=== PATIENT | male | born 1965 | race Caucasian/White ===

== ENCOUNTER → 2016-08-16 | Outpatient (CLI) | payer OTHER | LOC: M LAB 07:29 | PROVIDERS: ATTEND Neurological Surgery | DX: E66.9 Obesity, unspecified (principal) ==

== ENCOUNTER 2018-01-28 16:49 | Emergency (ER) | payer OTHER ==
[2018-01-28 18:06] LABS: BASO # 0.1 10^3/uL (0.0-0.2); BASO % 1.1 % (0.0-1.0); EOS # 0.2 10^3/uL (0.0-0.50); EOS % 2.4 % (0.0-3.0); HEMOGLOBIN 14.8 g/dl (13.5-17.5); IMMATURE GRANULOCYTE % 0.2 % (0-3.0); LYMPH # 2.4 10^3/uL (1.5-4.5); MEAN CORPUSCULAR HEMOGLOBIN 29.2 pg (27.0-33.0); MEAN CORPUSCULAR HGB CONC 34.4 g/dl (32.0-36.5); MONO # 0.6 10^3/uL (0.0-0.8); MONO % 7.2 % (0.0-5.0); NEUTROPHILS # 5.1 10^3/uL (1.8-7.7); NEUTROPHILS % 60.1 % (36.0-66.0); PLATELET COUNT, AUTOMATED 259 10^3/uL (150-450); RED BLOOD COUNT 5.06 10^6/uL (4.30-6.10); RED CELL DISTRIBUTION WIDTH 14.2 % (11.5-14.5); WHITE BLOOD COUNT 8.4 10^3/uL (4.0-10.0)
[2018-01-28 18:11] LABS: ALBUMIN 3.7 GM/DL (3.2-5.2); ALBUMIN/GLOBULIN RATIO 1.28 (1.00-1.93); ALKALINE PHOSPHATASE 67 U/L (45-117); ALT/SGPT 77 U/L (12-78); ANION GAP 7 MEQ/L (8-16); AST/SGOT 35 U/L (7-37); BILIRUBIN,DIRECT < 0.1 MG/DL (0.0-0.2); BILIRUBIN,TOTAL 0.3 MG/DL (0.2-1.0); BLOOD UREA NITROGEN 12 MG/DL (7-18); CALCIUM LEVEL 8.9 MG/DL (8.5-10.1); CARBON DIOXIDE LEVEL 26 MEQ/L (21-32); CHLORIDE LEVEL 105 MEQ/L (98-107); CPK CREATINE PHOSPHOKINASE 197 U/L (39-308); CREATININE FOR GFR 0.82 MG/DL (0.70-1.30); FREE T4 0.98 NG/DL (0.76-1.46); GLOMERULAR FILTRATION RATE > 60.0 (>56); GLUCOSE, FASTING 140 MG/DL (70-100); LIPASE 169 U/L (73-393); MB/CK RELATIVE INDEX 1.17 (< OR =4); POTASSIUM SERUM 3.9 MEQ/L (3.5-5.1); SODIUM LEVEL 138 MEQ/L (136-145); TOTAL PROTEIN 6.6 GM/DL (6.4-8.2); TROPONIN I < 0.02 NG/ML (< 0.10)
[2018-01-28 18:20] LABS: INR 0.95; PROTHROMBIN TIME 12.8 SECONDS (12.1-14.4)
[2018-01-28 18:21] LABS: PARTIAL THROMBOPLASTIN TIME 29.4 SECONDS (25.4-37.6)
[2018-01-28] MEDS: GI COCKTAIL 50ML BTL(HYOSCYAMINE/MAALOX/LIDOCAINE VISCOUS)(1:3:1) PO (18:26)
[2018-01-28] MEDS: KETOROLAC 30 MG/ML VIAL (J1885) IV (18:27)
[2018-01-28 21:28] LABS: CPK CREATINE PHOSPHOKINASE 179 U/L (39-308); MB/CK RELATIVE INDEX 1.17 (< OR =4); TROPONIN I < 0.02 NG/ML (< 0.10)
== END 2018-01-28 22:24 | disposition home or self-care (01) ==
LOC: M ED 16:49
DX: R07.89 Other chest pain (principal); R06.02 Shortness of breath; R20.2 Paresthesia of skin; Z87.828 Personal history of other (healed) physical injury and trauma; F17.200 Nicotine dependence, unspecified, uncomplicated
CPT/HCPCS: J1885

== ENCOUNTER → 2018-08-12 | Outpatient (CLI) | payer OTHER ==
--- NOTE | 2018-08-15 11:13 | SLEEPCENT ---
DATE OF STUDY: 08/12/2018 ORDERED BY: Stephanie Barth Nocturnal polysomnography was performed for evaluation of sleep physiology in this patient with a history of excessive somnolence and snoring who has nonrestorative sleep and comorbidities of hypertension and diabetes. 8 hours and 54 minutes of data were reviewed. There were 448 minutes of sleep identified. Sleep latency was mildly prolonged at 29 minutes. Rapid eye movement (REM) latency was normal at 86 minutes. Sleep architecture was fairly good. There was some fragmentation early in the study. There were 4 REM periods noted. Overall sleep efficiency was 86.8%. The electrocardiogram showed a sinus rhythm with an average heart rate of 80 beats per minute. Electroencephalogram (EEG) showed some artifactual changes. No focal events were seen and there were normal waveforms for awake and sleep. There were 51 respiratory events identified of 10 seconds in duration or greater for an apnea-hypopnea index of 8.1. The events were primarily obstructive, not exclusive to sleep stage nor body posture. Arousals from respiratory events occurred 5.1 times per hour and there were oxygen desaturations into the 80s. There was limited limb activity noted in the EMG and remaining measures of sleep physiology were normal. IMPRESSION: Obstructive sleep apnea syndrome (G47.33). Apnea-hypopnea index 8.1. RECOMMENDATION: The patient should be encouraged to undergo formal sleep evaluation and in-laboratory pressure titration. In the interim, alcohol and sedative avoidance should be practiced and caution exercised during the operation of motor vehicles.
== END ==
LOC: M SLEEP 19:51
PROVIDERS: ATTEND Nurse Practitioner Family
DX: G47.33 Obstructive sleep apnea (adult) (pediatric) (principal)

== ENCOUNTER → 2018-09-16 | Outpatient (CLI) | payer OTHER ==
--- NOTE | 2018-09-19 20:36 | SLEEPCENT ---
DATE OF PROCEDURE: 09/16/2018 ORDERED BY: CHARLOTTE Vazquez Nocturnal polysomnography was performed for the titration of pressure therapy in this patient with a history of obstructive sleep apnea syndrome. Apnea-hypopnea index 8.1. For testing a ResMed SoftEdge mask of standard size was used and 4 cm of water pressure applied to the circuit and the lights were extinguished. 8 hours and 10 minutes of data were reviewed. There were 372 minutes of sleep identified. Sleep latency was prolonged at 63 minutes. Rapid eye movement (REM) latency was normal at 75 minutes. Sleep architecture improved with evidence of REM rebound late in the study. Overall sleep efficiency was 76.9%. The electrocardiogram showed a sinus rhythm with an average heart rate of 72 beats minute. EEG showed normal waveforms for awake and sleep. Respiratory events were fully palliated with continuous positive airway pressure (CPAP) at a pressure of +7 with some limb activity in the EMG leads. Limb movement arousal index on this occasion was 9.2. IMPRESSION: Obstructive sleep apnea syndrome (G47.33). RECOMMENDATIONS: Nightly use of pressure therapy 7 cm of water.
== END ==
LOC: M SLEEP 19:46
PROVIDERS: ATTEND Nurse Practitioner Family
DX: G47.33 Obstructive sleep apnea (adult) (pediatric) (principal)

== ENCOUNTER → 2020-04-29 | Outpatient (CLI) | payer OTHER | LOC: M LABSMTC 10:40 | PROVIDERS: ATTEND Pediatrics | DX: Z20.822 Contact with and (suspected) exposure to COVID-19 (principal) | CPT/HCPCS: C9803; U0003 ==

== ENCOUNTER 2020-07-07 14:33 | Emergency (ER) | payer OTHER ==
[~2020-07-07] VITALS: Ht 182.9 cm; Wt 105.6 kg
[2020-07-07] MEDS ORDERED: ZOFR4TAB16 PO (14:42)
[2020-07-07] MEDS ORDERED: TORADOL (14:42)
--- NOTE | 2020-07-07 15:20 | REP ---
INDICATION: CHEST PAIN COMPARISON: 01/28/2018 TECHNIQUE: PA and lateral. FINDINGS: The mediastinum and cardiac silhouette are normal. The lung werner are clear and without acute consolidation, effusion, or pneumothorax. The skeletal structures are intact and normal. IMPRESSION: No acute cardiopulmonary process. <Electronically signed by Steve Bustillos > 07/07/20 [id number]
[2020-07-07 15:50] LABS: BASO # 0.1 10^3/uL (0.0-0.2); BASO % 1.1 % (0.0-1.0); EOS # 0.3 10^3/uL (0.0-0.5); EOS % 3.4 % (0.0-3.0); HEMATOCRIT 47.5 % (42.0-52.0); HEMOGLOBIN 15.8 g/dl (13.5-17.5); LYMPH # 2.9 10^3/uL (1.5-5.0); LYMPH % 37.9 % (24.0-44.0); MEAN CORPUSCULAR HEMOGLOBIN 29.3 pg (27.0-33.0); MEAN CORPUSCULAR HGB CONC 33.3 g/dl (32.0-36.5); MEAN CORPUSCULAR VOLUME 88.1 fl (80.0-96.0); MONO # 0.5 10^3/uL (0.0-0.8); NEUTROPHILS # 3.8 10^3/uL (1.5-8.5); NEUTROPHILS % 50.3 % (36.0-66.0); PLATELET COUNT, AUTOMATED 273 10^3/uL (150-450); RED BLOOD COUNT 5.39 10^6/uL (4.30-6.10); WHITE BLOOD COUNT 7.6 10^3/uL (4.0-10.0)
[2020-07-07 16:16] LABS: AMPHETAMINES LEVEL URINE POSITIVE (NEGATIVE); BARBITURATES URINE NEGATIVE (NEGATIVE); BENZODIAZEPINES URINE NEGATIVE (NEGATIVE); CANNABINOIDS URINE NEGATIVE (NEGATIVE); COCAINE METABOLITE URINE NEGATIVE (NEGATIVE); METHADONE URINE NEGATIVE (NEGATIVE); OPIATES URINE NEGATIVE (NEGATIVE); PHENCYCLIDINE URINE NEGATIVE (NEGATIVE)
[2020-07-07 16:22] LABS: ACETAMINOPHEN LEVEL < 2.0 UG/ML (10.0-30.0); ALBUMIN 3.8 GM/DL (3.2-5.2); ALT/SGPT 30 U/L (12-78); BILIRUBIN,DIRECT < 0.1 MG/DL (0.0-0.2); BILIRUBIN,TOTAL 0.3 MG/DL (0.2-1.0); BLOOD UREA NITROGEN 15 MG/DL (7-18); CARBON DIOXIDE LEVEL 30 MEQ/L (21-32); CHLORIDE LEVEL 107 MEQ/L (98-107); CK-MB VALUE MASS 1.8 NG/ML (<3.6); CPK CREATINE PHOSPHOKINASE 130 U/L (39-308); CREATININE FOR GFR 0.93 MG/DL (0.70-1.30); ETHYL ALCOHOL (ETHANOL) < 0.003 % (0.000-0.010); GLOMERULAR FILTRATION RATE > 60.0 (>56); GLUCOSE, FASTING 92 MG/DL (70-100); LIPASE 129 U/L (73-393); MB/CK RELATIVE INDEX 1.38 (< OR =4); POTASSIUM SERUM 4.3 MEQ/L (3.5-5.1); SALICYLATE LEVEL 2.2 MG/DL (5.0-30.0); SODIUM LEVEL 141 MEQ/L (136-145); TOTAL PROTEIN 6.9 GM/DL (6.4-8.2); TROPONIN I < 0.02 NG/ML (< 0.10)
[2020-07-07 17:04] VITALS: BP 146/80
--- NOTE | 2020-07-07 18:20 | ECGEPIP ---
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
== END 2020-07-07 17:20 | disposition home or self-care (01) ==
LOC: M ED 14:33
DX: R07.9 Chest pain, unspecified (principal); Z20.828 Contact with and (suspected) exposure to other viral communicable diseases; I10 Essential (primary) hypertension; F17.200 Nicotine dependence, unspecified, uncomplicated

== ENCOUNTER 2020-12-22 10:55 | Emergency (ER) | payer OTHER ==
[~2020-12-22] VITALS: Ht 182.9 cm; Wt 102.5 kg
[~2020-12-22 10:55] MED LIST: TORADOL; ZOFR4TAB16 PO
[2020-12-22] MEDS ORDERED: AMPH1CAP5 (11:03)
[2020-12-22] MEDS ORDERED: NITROGLYCERIN 0.4 MG SUBL TABLET SL PRN (11:15)
[2020-12-22] MEDS ORDERED: ASPIRIN 81 MG CHEW TABLET PO ONE (11:15)
--- NOTE | 2020-12-22 11:33 | REP ---
INDICATION: CHEST PAIN COMPARISON: 07/07/2020 TECHNIQUE: Portable AP view of the chest FINDINGS: The mediastinum and cardiac silhouette are stable and within normal limits for portable technique. The lung werner are clear without acute consolidation, effusion, or pneumothorax. Skeletal structures are intact. IMPRESSION: No acute cardiopulmonary process appreciated. <Electronically signed by Steve Bustillos > 12/22/20 [id number]
[2020-12-22 11:37] VITALS: BP 121/64
[2020-12-22 11:42] LABS: BASO # 0.1 10^3/uL (0.0-0.2); BASO % 1.2 % (0.0-1.0); EOS # 0.2 10^3/uL (0.0-0.5); EOS % 2.9 % (0.0-3.0); HEMATOCRIT 47.6 % (42.0-52.0); LYMPH # 2.1 10^3/uL (1.5-5.0); LYMPH % 29.1 % (24.0-44.0); MEAN CORPUSCULAR HEMOGLOBIN 28.6 pg (27.0-33.0); MEAN CORPUSCULAR HGB CONC 33.6 g/dl (32.0-36.5); MEAN CORPUSCULAR VOLUME 85.2 fl (80.0-96.0); MONO # 0.6 10^3/uL (0.0-0.8); MONO % 8.6 % (2.0-8.0); NEUTROPHILS # 4.2 10^3/uL (1.5-8.5); NEUTROPHILS % 57.8 % (36.0-66.0); PLATELET COUNT, AUTOMATED 258 10^3/uL (150-450); RED BLOOD COUNT 5.59 10^6/uL (4.30-6.10); WHITE BLOOD COUNT 7.3 10^3/uL (4.0-10.0)
[2020-12-22 12:10] LABS: ALBUMIN 3.6 GM/DL (3.2-5.2); ALT/SGPT 28 U/L (12-78); BILIRUBIN,DIRECT < 0.1 MG/DL (0.0-0.2); BILIRUBIN,TOTAL 0.2 MG/DL (0.2-1.0); BLOOD UREA NITROGEN 14 MG/DL (7-18); CALCIUM LEVEL 9.1 MG/DL (8.5-10.1); CARBON DIOXIDE LEVEL 29 MEQ/L (21-32); CHLORIDE LEVEL 105 MEQ/L (98-107); CREATININE FOR GFR 0.88 MG/DL (0.70-1.30); GLOMERULAR FILTRATION RATE > 60.0 (>56); GLUCOSE, FASTING 112 MG/DL (70-100); LIPASE 121 U/L (73-393); NT-PRO BNP 18 PG/ML (<125); POTASSIUM SERUM 4.2 MEQ/L (3.5-5.1); SODIUM LEVEL 140 MEQ/L (136-145); THYROID STIMULATING HORMONE 0.852 uIU/ML (0.358-3.740); TOTAL PROTEIN 6.8 GM/DL (6.4-8.2)
[2020-12-22] MEDS ORDERED: ISOVUE-370 76% 100ML VIAL As Ordered ONE (12:28)
--- NOTE | 2020-12-22 12:42 | REP ---
INDICATION: CP COMPARISON: None. TECHNIQUE: Axial contrast enhanced images from the thoracic inlet to the upper abdomen using pulmonary embolus technique with multiplanar re-formations. 75 ml Isovue 370 intravenous contrast material administered without complication. This CT examination was performed using the following dose reduction techniques: Automated exposure control, adjustment of mA and/or kv according to the patient's size, and use of iterative reconstruction technique. FINDINGS: Satisfactory enhancement of the pulmonary vasculature is achieved and no filling defects are identified to suggest pulmonary embolus. Further evaluation of the mediastinum demonstrates normal thoracic aorta, heart and pericardium. The bilateral lung werner are well aerated and clear without consolidation pleural effusion or pneumothorax. Tracheobronchial tree is patent. No nodule or mass lesion is identified. No adenopathy noted. Surrounding musculoskeletal structures intact IMPRESSION: No evidence for pulmonary embolus. No acute mediastinal or pleural parenchymal process. <Electronically signed by Steve Bustillos > 12/22/20 [id number]
[2020-12-22] MEDS ORDERED: ASPI81TA26 PO (14:07)
[2020-12-22 17:30] VITALS: BP 126/68
--- NOTE | 2020-12-22 19:49 | ECGEPIP ---
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
--- NOTE | 2020-12-23 15:09 | ECGEPIP ---
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
== END 2020-12-22 18:30 | disposition home or self-care (01) ==
LOC: M ED 10:55
DX: R07.9 Chest pain, unspecified (principal); I10 Essential (primary) hypertension; E78.5 Hyperlipidemia, unspecified; G89.29 Other chronic pain; M54.2 Cervicalgia; M54.50 Low back pain, unspecified; Z79.82 Long term (current) use of aspirin
CPT/HCPCS: 36415; 71045; 71275; 80048; 80076; 83690; 83880; 84443; 84484; 85025; 93005; 93041; 94760; 99285; Q9967

== ENCOUNTER 2024-02-13 22:23 | Emergency (ER) | payer OTHER ==
[~2024-02-13] VITALS: Ht 182.9 cm; Wt 108.1 kg
[~2024-02-13 22:23] MED LIST changes: +AMPH1CAP5; +ASPI81TA26 PO
[2024-02-14] MEDS: KETOROLAC 60MG 2ML VIAL IM ONE (01:52)
[2024-02-14] MEDS: ONDANSETRON 4MG 2ML VIAL IV ONE (02:36)
[2024-02-14] MEDS: MORPHINE 4 MG/ML 1ML VIAL IV ONE (02:36)
[2024-02-14 03:46] LABS: BASO # 0.1 10^3/uL (0.0-0.2); BASO % 0.4 % (0.0-1.0); EOS # 0.2 10^3/uL (0.0-0.5); EOS % 1.4 % (0.0-3.0); HEMATOCRIT 41.9 % (42.0-52.0); LYMPH # 2.3 10^3/uL (1.5-5.0); LYMPH % 19.7 % (24.0-44.0); MEAN CORPUSCULAR HEMOGLOBIN 28.8 pg (27.0-33.0); MEAN CORPUSCULAR HGB CONC 33.4 g/dl (32.0-36.5); MEAN CORPUSCULAR VOLUME 86.2 fl (80.0-96.0); MONO # 1.2 10^3/uL (0.0-0.8); MONO % 9.9 % (2.0-8.0); NEUTROPHILS # 8.1 10^3/uL (1.5-8.5); NEUTROPHILS % 68.3 % (36.0-66.0); PLATELET COUNT, AUTOMATED 260 10^3/uL (150-450); RED BLOOD COUNT 4.86 10^6/uL (4.30-6.10); WHITE BLOOD COUNT 11.8 10^3/uL (4.0-10.0)
[2024-02-14 04:11] LABS: LIPASE 29 U/L (12-53)
[2024-02-14 04:13] LABS: ALBUMIN 3.5 G/DL (3.2-5.2); ALKALINE PHOSPHATASE 88 U/L (40-129); ALT/SGPT 66 U/L (7.0-40); AST/SGOT 23 U/L (<34); BILIRUBIN,TOTAL 0.6 MG/DL (0.3-1.2); BLOOD UREA NITROGEN 15 MG/DL (9-23); CALCIUM LEVEL 9.8 MG/DL (8.5-10.1); CARBON DIOXIDE LEVEL 26 MMOL/L (20-31); CHLORIDE LEVEL 107 MMOL/L (98-107); CREATININE FOR GFR 0.76 MG/DL (0.70-1.30); GLOMERULAR FILTRATION RATE > 60.0 (>56); GLUCOSE, FASTING 117 MG/DL (60-100); POTASSIUM SERUM 4.4 MMOL/L (3.5-5.1); SODIUM LEVEL 141 MMOL/L (136-145); TOTAL PROTEIN 6.4 G/DL (5.7-8.2)
[2024-02-14] MEDS: PIPERACILLIN/TAZOBACTAM SOD 4.5 GM in DEXTROSE 5% (D5W) ADV/MINI-BAG 50 ML IV ONE (04:27)
[2024-02-14] MEDS ORDERED: AMOX875T2 PO (04:43)
[2024-02-14 05:15] VITALS: BP 130/67; TEMP 96.7; O2SAT 96
== END 2024-02-14 05:32 | disposition home or self-care (01) ==
LOC: M ED 22:23
DX: K57.92 Diverticulitis of intestine, part unspecified, without perforation or abscess without bleeding (principal); F90.9 Attention-deficit hyperactivity disorder, unspecified type; Z79.1 Long term (current) use of non-steroidal anti-inflammatories (NSAID); Z79.2 Long term (current) use of antibiotics; Z79.899 Other long term (current) drug therapy
CPT/HCPCS: 74176; 76870; 80053; 83690; 85025; 86140; 93976; 96365; 96372; 96375; 99284; J1885; J2405; J2543

== ENCOUNTER → 2024-02-18 | Outpatient (CLI) | payer OTHER ==
[~2024-02-18] MED LIST changes: +AMOX875T2 PO
== END ==
LOC: M RAD 08:43
PROVIDERS: ATTEND Nurse Practitioner Family
DX: Z87.891 Personal history of nicotine dependence (principal)

== ENCOUNTER → 2024-04-10 | Outpatient (CLI) | payer OTHER | LOC: M RAD 12:02 | PROVIDERS: ATTEND Registered Nurse | DX: E05.80 Other thyrotoxicosis without thyrotoxic crisis or storm (principal) ==

== ENCOUNTER 2024-05-15 06:41 | Inpatient (IN) | payer OTHER ==
[~2024-05-15] VITALS: Ht 182.9 cm; Wt 104.2 kg
[~2024-05-15 06:41] MED LIST changes: -AMPH1CAP5; +AMPH1CAP5 PO
[2024-05-15 07:18] LABS: BASO # 0.1 10^3/uL (0.0-0.2); BASO % 0.7 % (0.0-1.0); EOS # 0.2 10^3/uL (0.0-0.5); EOS % 2.3 % (0.0-3.0); HEMATOCRIT 42.1 % (42.0-52.0); HEMOGLOBIN 14.1 g/dl (13.5-17.5); LYMPH # 2.7 10^3/uL (1.5-5.0); LYMPH % 37.5 % (24.0-44.0); MEAN CORPUSCULAR HEMOGLOBIN 27.8 pg (27.0-33.0); MEAN CORPUSCULAR HGB CONC 33.5 g/dl (32.0-36.5); MONO # 0.7 10^3/uL (0.0-0.8); MONO % 10.2 % (2.0-8.0); NEUTROPHILS # 3.6 10^3/uL (1.5-8.5); PLATELET COUNT, AUTOMATED 235 10^3/uL (150-450); RED BLOOD COUNT 5.07 10^6/uL (4.30-6.10); WHITE BLOOD COUNT 7.3 10^3/uL (4.0-10.0)
[2024-05-15] MEDS: DIGOXIN INJ 0.5 MG/2 ML AMP IV STA (07:33)
[2024-05-15] MEDS ORDERED: METO1TAB32 PO (07:50)
[2024-05-15 07:53] LABS: CK-MB VALUE MASS 1.3 NG/ML (<3.6)
[2024-05-15 07:55] LABS: BLOOD UREA NITROGEN 14 MG/DL (9-23); CARBON DIOXIDE LEVEL 25 MMOL/L (20-31); CHLORIDE LEVEL 109 MMOL/L (98-107); CPK CREATINE PHOSPHOKINASE 71 U/L (46-171); CREATININE FOR GFR 0.72 MG/DL (0.70-1.30); GLOMERULAR FILTRATION RATE > 60.0 (>56); GLUCOSE, FASTING 136 MG/DL (60-100); MB/CK RELATIVE INDEX 1.83 (< OR =4); POTASSIUM SERUM 4.3 MMOL/L (3.5-5.1); SODIUM LEVEL 142 MMOL/L (136-145)
[2024-05-15 07:57] LABS: THYROID STIMULATING HORMONE < 0.010 uIU/ML (0.55-4.78)
[2024-05-15 07:58] LABS: FREE T4 3.49 NG/DL (0.89-1.76)
[2024-05-15 08:05] LABS: TOTAL T3 447.4 NG/DL (60.0-181.0)
[2024-05-15] MEDS: METOPROLOL 5 MG/5 ML VIAL IV SCH ×2 (08:39→10:15)
[2024-05-15] MEDS: METOPROLOL TART 50 MG TAB PO ONE ×2 (08:39→10:14)
[2024-05-15 08:43] LABS: CK-MB VALUE MASS < 1.0 NG/ML (<3.6)
[2024-05-15 08:51] LABS: CPK CREATINE PHOSPHOKINASE 75 U/L (46-171); MB/CK RELATIVE INDEX 1.33 (< OR =4)
[2024-05-15] MEDS ORDERED: ISOVUE-370 76% 100ML VIAL As Ordered ONE (11:24)
[2024-05-15] MEDS: APIXABAN 5 MG TAB (ELIQUIS) PO ONE (12:23)
[2024-05-15] MEDS ORDERED: METF500T13 PO (13:12)
[2024-05-15] MEDS ORDERED: ACET-683 PO (13:12)
[2024-05-15] MEDS ORDERED: VITA100066 PO (13:12)
[2024-05-15] MEDS ORDERED: ATOR1TAB21 PO (13:12)
[2024-05-15] MEDS ORDERED: HOME MED LIST COMPLETE! XX SCH (13:15)
[2024-05-15] MEDS: DIGOXIN INJ 0.5 MG/2 ML AMP IV ONE ×2 (14:50→20:50)
[2024-05-15] MEDS: HYDROCORTISONE 100MG/2ML VIAL IV ONE (17:25)
[2024-05-15 17:48] VITALS: BP 135/75; TEMP 98.9; O2SAT 96
[2024-05-15] MEDS ORDERED: PROPRANOLOL 20 MG TAB PO SCH (18:00)
[2024-05-15 19:30] VITALS: BP 147/87
[2024-05-15] MEDS: PROPRANOLOL 20 MG TAB PO SCH (19:35)
[2024-05-15 20:05] VITALS: BP 146/87; TEMP 98.7; O2SAT 93
[2024-05-15] MEDS: CHOLESTYRAMINE 4GM PWD PKT PO SCH (20:48)
[2024-05-15] MEDS: APIXABAN 5 MG TAB (ELIQUIS) PO SCH (21:56)
[2024-05-15 23:37] VITALS: BP 145/68; TEMP 98.5; O2SAT 93
[2024-05-16] VITALS (54 sets, daily range): BP systolic 92–146; BP diastolic 49–99; TEMP 97.4–99.4; O2SAT 20–98
[2024-05-16] MEDS: METOPROLOL 5 MG/5 ML VIAL IV SCH ×2 (01:01→14:43)
[2024-05-16] MEDS: HYDROCORTISONE 100MG/2ML VIAL IV SCH (01:57)
[2024-05-16] MEDS: METOPROLOL TARTRATE 100MG TAB PO ONE (02:24)
[2024-05-16] MEDS: dilTIAZem 25MG/5ML VIAL IV STA ×2 (04:44→19:55)
[2024-05-16] MEDS: dilTIAZem HCL 125 MG in NS 100 ML IV SCH ×2 (05:28→20:44)
[2024-05-16 05:56] LABS: BASO % 0.2 % (0.0-1.0); EOS % 0.4 % (0.0-3.0); HEMATOCRIT 38.8 % (42.0-52.0); HEMOGLOBIN 13.1 g/dl (13.5-17.5); LYMPH # 1.6 10^3/uL (1.5-5.0); LYMPH % 14.9 % (24.0-44.0); MEAN CORPUSCULAR HEMOGLOBIN 27.6 pg (27.0-33.0); MEAN CORPUSCULAR HGB CONC 33.8 g/dl (32.0-36.5); MEAN CORPUSCULAR VOLUME 81.7 fl (80.0-96.0); MONO # 0.5 10^3/uL (0.0-0.8); MONO % 4.9 % (2.0-8.0); NEUTROPHILS # 8.7 10^3/uL (1.5-8.5); NEUTROPHILS % 79.3 % (36.0-66.0); PLATELET COUNT, AUTOMATED 230 10^3/uL (150-450); RED BLOOD COUNT 4.75 10^6/uL (4.30-6.10); WHITE BLOOD COUNT 10.9 10^3/uL (4.0-10.0)
[2024-05-16 06:13] LABS: ALBUMIN 3.1 G/DL (3.2-5.2); ALKALINE PHOSPHATASE 69 U/L (40-129); ALT/SGPT 49 U/L (7.0-40); AST/SGOT 22 U/L (<34); BILIRUBIN,TOTAL 0.6 MG/DL (0.3-1.2); BLOOD UREA NITROGEN 11 MG/DL (9-23); CARBON DIOXIDE LEVEL 24 MMOL/L (20-31); CHLORIDE LEVEL 107 MMOL/L (98-107); GLOMERULAR FILTRATION RATE > 60.0 (>56); GLUCOSE, FASTING 152 MG/DL (60-100); MAGNESIUM LEVEL 1.7 MG/DL (1.8-2.4); POTASSIUM SERUM 4.3 MMOL/L (3.5-5.1); SODIUM LEVEL 138 MMOL/L (136-145); TOTAL PROTEIN 6.1 G/DL (5.7-8.2)
[2024-05-16 06:14] LABS: THYROID STIMULATING HORMONE < 0.010 uIU/ML (0.55-4.78)
[2024-05-16 06:15] LABS: FREE T3 12.2 PG/ML (2.3-4.2); FREE T4 2.85 NG/DL (0.89-1.76)
[2024-05-16] MEDS: CHOLESTYRAMINE 4GM PWD PKT PO SCH (07:48)
[2024-05-16] MEDS: DIGOXIN 0.25 MG TAB PO SCH (08:33)
[2024-05-16] MEDS: MAG SULF 1GM/100ML (MAG RUN) 1 GM in IV 1 EA IV ONE (08:34)
[2024-05-16] MEDS ORDERED: ENOXAPARIN 40MG/0.4ML SYRINGE (J1650 PER 10MG) SC SCH (09:00)
[2024-05-16] MEDS: PROPRANOLOL 20 MG TAB PO SCH (11:10)
[2024-05-16] MEDS: FUROSEMIDE 40MG/4ML VIAL IV ONE (18:51)
[2024-05-16] MEDS: PROPRANOLOL INJ 1MG/ML 1ML VIAL IV SCH (18:51)
[2024-05-16] MEDS: BUDESONIDE 0.5 MG/2 ML INHALATION SUSPENSION NEB SCH (20:38)
[2024-05-17] VITALS (52 sets, daily range): BP systolic 82–150; BP diastolic 50–92; TEMP 98.4–99.1; O2SAT 90–99
[2024-05-17] MEDS: dilTIAZem 25MG/5ML VIAL IV STA (04:04)
[2024-05-17 05:31] LABS: BASO % 0.3 % (0.0-1.0); EOS % 0.4 % (0.0-3.0); HEMATOCRIT 38.5 % (42.0-52.0); HEMOGLOBIN 12.9 g/dl (13.5-17.5); LYMPH # 1.6 10^3/uL (1.5-5.0); MEAN CORPUSCULAR HEMOGLOBIN 27.7 pg (27.0-33.0); MEAN CORPUSCULAR HGB CONC 33.5 g/dl (32.0-36.5); MEAN CORPUSCULAR VOLUME 82.6 fl (80.0-96.0); MONO # 0.6 10^3/uL (0.0-0.8); MONO % 6.5 % (2.0-8.0); NEUTROPHILS # 6.6 10^3/uL (1.5-8.5); NEUTROPHILS % 74.5 % (36.0-66.0); PLATELET COUNT, AUTOMATED 228 10^3/uL (150-450); RED BLOOD COUNT 4.66 10^6/uL (4.30-6.10); WHITE BLOOD COUNT 8.9 10^3/uL (4.0-10.0)
[2024-05-17 06:01] LABS: BLOOD UREA NITROGEN 12 MG/DL (9-23); CALCIUM LEVEL 8.4 MG/DL (8.5-10.1); CARBON DIOXIDE LEVEL 24 MMOL/L (20-31); CHLORIDE LEVEL 108 MMOL/L (98-107); CREATININE FOR GFR 0.72 MG/DL (0.70-1.30); GLOMERULAR FILTRATION RATE > 60.0 (>56); GLUCOSE, FASTING 223 MG/DL (60-100); POTASSIUM SERUM 4.5 MMOL/L (3.5-5.1); SODIUM LEVEL 140 MMOL/L (136-145)
[2024-05-17 06:04] LABS: FREE T4 2.57 NG/DL (0.89-1.76)
[2024-05-17 06:05] LABS: THYROID STIMULATING HORMONE < 0.010 uIU/ML (0.55-4.78)
[2024-05-17 06:07] LABS: FREE T3 9.1 PG/ML (2.3-4.2)
[2024-05-17] MEDS: PROPRANOLOL 20 MG TAB PO SCH (09:42)
[2024-05-17] MEDS: HYDROCORTISONE 100MG/2ML VIAL IV SCH (10:13)
[2024-05-17] MEDS: ESMOLOL HCL 2,000 MG in IV 1 EA IV SCH (11:39)
[2024-05-17] MEDS: DIGOXIN 0.25 MG TAB PO ONE (18:24)
[2024-05-17] MEDS: DIGOXIN 0.25 MG TAB PO SCH (23:21)
[2024-05-17] MEDS: CALCIUM CARBONATE 500 MG CHEW U/D PO ONE (23:21)
[2024-05-18] VITALS (89 sets, daily range): BP systolic 92–143; BP diastolic 51–87; TEMP 97.7–98.7; O2SAT 91–98
[2024-05-18 04:47] LABS: BASO % 0.3 % (0.0-1.0); EOS % 0.2 % (0.0-3.0); HEMATOCRIT 39.4 % (42.0-52.0); HEMOGLOBIN 12.8 g/dl (13.5-17.5); LYMPH # 1.3 10^3/uL (1.5-5.0); MEAN CORPUSCULAR HEMOGLOBIN 26.9 pg (27.0-33.0); MEAN CORPUSCULAR HGB CONC 32.5 g/dl (32.0-36.5); MEAN CORPUSCULAR VOLUME 82.8 fl (80.0-96.0); MONO # 0.6 10^3/uL (0.0-0.8); NEUTROPHILS # 7.5 10^3/uL (1.5-8.5); NEUTROPHILS % 79.2 % (36.0-66.0); PLATELET COUNT, AUTOMATED 225 10^3/uL (150-450); RED BLOOD COUNT 4.76 10^6/uL (4.30-6.10); WHITE BLOOD COUNT 9.5 10^3/uL (4.0-10.0)
[2024-05-18 05:03] LABS: ALBUMIN 2.9 G/DL (3.2-5.2); ALKALINE PHOSPHATASE 68 U/L (40-129); ALT/SGPT 36 U/L (7.0-40); AST/SGOT 12 U/L (<34); BILIRUBIN,TOTAL 0.5 MG/DL (0.3-1.2); BLOOD UREA NITROGEN 12 MG/DL (9-23); CALCIUM LEVEL 8.8 MG/DL (8.5-10.1); CARBON DIOXIDE LEVEL 21 MMOL/L (20-31); CHLORIDE LEVEL 111 MMOL/L (98-107); CREATININE FOR GFR 0.68 MG/DL (0.70-1.30); DIGOXIN LEVEL 0.7 NG/ML (0.8-2.0); GLOMERULAR FILTRATION RATE > 60.0 (>56); GLUCOSE, FASTING 174 MG/DL (60-100); MAGNESIUM LEVEL 1.8 MG/DL (1.8-2.4); POTASSIUM SERUM 4.4 MMOL/L (3.5-5.1); SODIUM LEVEL 141 MMOL/L (136-145)
[2024-05-18 05:05] LABS: FREE T4 2.39 NG/DL (0.89-1.76); THYROID STIMULATING HORMONE < 0.010 uIU/ML (0.55-4.78)
[2024-05-18] MEDS: FUROSEMIDE 40MG/4ML VIAL IV ONE (09:27)
[2024-05-18] MEDS: POTASSIUM IODIDE 30 ML BTL PO SCH (11:48)
[2024-05-18] MEDS: DIGOXIN 0.25 MG TAB PO SCH (14:17)
[2024-05-19] VITALS (65 sets, daily range): BP systolic 90–147; BP diastolic 51–73; TEMP 97.1–98.7; O2SAT 93–100
[2024-05-19 05:01] LABS: BASO % 0.3 % (0.0-1.0); EOS % 0.2 % (0.0-3.0); HEMATOCRIT 38.3 % (42.0-52.0); HEMOGLOBIN 12.9 g/dl (13.5-17.5); LYMPH # 1.5 10^3/uL (1.5-5.0); LYMPH % 12.1 % (24.0-44.0); MEAN CORPUSCULAR HEMOGLOBIN 27.4 pg (27.0-33.0); MEAN CORPUSCULAR HGB CONC 33.7 g/dl (32.0-36.5); MEAN CORPUSCULAR VOLUME 81.3 fl (80.0-96.0); MONO # 0.7 10^3/uL (0.0-0.8); MONO % 5.9 % (2.0-8.0); NEUTROPHILS # 9.9 10^3/uL (1.5-8.5); PLATELET COUNT, AUTOMATED 224 10^3/uL (150-450); RED BLOOD COUNT 4.71 10^6/uL (4.30-6.10); WHITE BLOOD COUNT 12.2 10^3/uL (4.0-10.0)
[2024-05-19 05:24] LABS: BLOOD UREA NITROGEN 12 MG/DL (9-23); CALCIUM LEVEL 8.6 MG/DL (8.5-10.1); CARBON DIOXIDE LEVEL 20 MMOL/L (20-31); CHLORIDE LEVEL 114 MMOL/L (98-107); CREATININE FOR GFR 0.68 MG/DL (0.70-1.30); DIGOXIN LEVEL 1.1 NG/ML (0.8-2.0); GLOMERULAR FILTRATION RATE > 60.0 (>56); GLUCOSE, FASTING 146 MG/DL (60-100); MAGNESIUM LEVEL 1.7 MG/DL (1.8-2.4); POTASSIUM SERUM 4.4 MMOL/L (3.5-5.1); SODIUM LEVEL 142 MMOL/L (136-145)
[2024-05-19 05:28] LABS: THYROID STIMULATING HORMONE < 0.010 uIU/ML (0.55-4.78)
[2024-05-19 05:29] LABS: FREE T4 1.92 NG/DL (0.89-1.76)
[2024-05-19 05:31] LABS: FREE T3 4.6 PG/ML (2.3-4.2)
[2024-05-19] MEDS: MAG SULF 1GM/100ML (MAG RUN) 1 GM in IV 1 EA IV ONE (06:10)
[2024-05-19] MEDS: dilTIAZem 30 MG TAB PO SCH (08:05)
[2024-05-19] MEDS ORDERED: HYALURONIDASE 15UNIT/ML 1ML SYRINGE (AMPHADASE) INJ ONE (14:00)
[2024-05-19] MEDS: HYALURONIDASE IV ONE (14:36)
[2024-05-19] MEDS: CALCIUM CARBONATE 500 MG CHEW U/D PO ONE (22:29)
[2024-05-20] VITALS (11 sets, daily range): BP systolic 125–158; BP diastolic 65–78; TEMP 97.5–98.6; O2SAT 93–98
[2024-05-20 05:27] LABS: BASO % 0.4 % (0.0-1.0); EOS % 0.4 % (0.0-3.0); HEMATOCRIT 36.5 % (42.0-52.0); HEMOGLOBIN 12.6 g/dl (13.5-17.5); LYMPH # 1.8 10^3/uL (1.5-5.0); LYMPH % 15.5 % (24.0-44.0); MEAN CORPUSCULAR HEMOGLOBIN 27.6 pg (27.0-33.0); MEAN CORPUSCULAR HGB CONC 34.5 g/dl (32.0-36.5); MONO # 0.8 10^3/uL (0.0-0.8); MONO % 6.7 % (2.0-8.0); NEUTROPHILS # 8.7 10^3/uL (1.5-8.5); NEUTROPHILS % 76.4 % (36.0-66.0); PLATELET COUNT, AUTOMATED 231 10^3/uL (150-450); RED BLOOD COUNT 4.56 10^6/uL (4.30-6.10); WHITE BLOOD COUNT 11.4 10^3/uL (4.0-10.0)
[2024-05-20 05:52] LABS: BLOOD UREA NITROGEN 9 MG/DL (9-23); CALCIUM LEVEL 8.5 MG/DL (8.5-10.1); CARBON DIOXIDE LEVEL 22 MMOL/L (20-31); CHLORIDE LEVEL 109 MMOL/L (98-107); CREATININE FOR GFR 0.63 MG/DL (0.70-1.30); DIGOXIN LEVEL 0.8 NG/ML (0.8-2.0); GLOMERULAR FILTRATION RATE > 60.0 (>56); GLUCOSE, FASTING 194 MG/DL (60-100); POTASSIUM SERUM 3.9 MMOL/L (3.5-5.1); SODIUM LEVEL 142 MMOL/L (136-145)
[2024-05-20 05:54] LABS: FREE T4 1.61 NG/DL (0.89-1.76); THYROID STIMULATING HORMONE < 0.010 uIU/ML (0.55-4.78)
[2024-05-20 05:57] LABS: FREE T3 3.8 PG/ML (2.3-4.2)
[2024-05-20 07:57] LABS: MAGNESIUM LEVEL 1.6 MG/DL (1.8-2.4)
[2024-05-20] MEDS ORDERED: DIGOXIN 0.25 MG TAB PO SCH (09:00)
[2024-05-20] MEDS: dilTIAZem 30 MG TAB PO SCH (09:33)
[2024-05-20] MEDS: MAG SULF 1GM/100ML (MAG RUN) 1 GM in IV 1 EA IV SCH (09:34)
[2024-05-20] MEDS ORDERED: PROPRANOLOL 20 MG TAB PO SCH (12:00)
[2024-05-20] MEDS: PROPRANOLOL 20 MG TAB PO SCH (12:00)
[2024-05-20] MEDS ORDERED: dilTIAZem 30 MG TAB PO SCH (14:00)
[2024-05-20] MEDS: HYDROCORTISONE 100MG/2ML VIAL IV SCH (18:05)
[2024-05-21] VITALS: BP 134/70; TEMP 98; O2SAT 98
[2024-05-21 04:00] VITALS: BP 130/68; TEMP 98.7; O2SAT 98
[2024-05-21 04:54] LABS: BASO # 0.1 10^3/uL (0.0-0.2); BASO % 0.6 % (0.0-1.0); EOS # 0.2 10^3/uL (0.0-0.5); EOS % 1.8 % (0.0-3.0); HEMATOCRIT 35.8 % (42.0-52.0); HEMOGLOBIN 12.3 g/dl (13.5-17.5); LYMPH # 2.4 10^3/uL (1.5-5.0); LYMPH % 22.4 % (24.0-44.0); MEAN CORPUSCULAR HEMOGLOBIN 27.3 pg (27.0-33.0); MEAN CORPUSCULAR HGB CONC 34.4 g/dl (32.0-36.5); MEAN CORPUSCULAR VOLUME 79.6 fl (80.0-96.0); MONO % 9.6 % (2.0-8.0); NEUTROPHILS # 6.8 10^3/uL (1.5-8.5); NEUTROPHILS % 64.7 % (36.0-66.0); PLATELET COUNT, AUTOMATED 242 10^3/uL (150-450); WHITE BLOOD COUNT 10.6 10^3/uL (4.0-10.0)
[2024-05-21 05:16] LABS: DIGOXIN LEVEL 0.3 NG/ML (0.8-2.0)
[2024-05-21 05:21] LABS: BLOOD UREA NITROGEN 10 MG/DL (9-23); CALCIUM LEVEL 8.4 MG/DL (8.5-10.1); CARBON DIOXIDE LEVEL 26 MMOL/L (20-31); CHLORIDE LEVEL 107 MMOL/L (98-107); CREATININE FOR GFR 0.66 MG/DL (0.70-1.30); GLOMERULAR FILTRATION RATE > 60.0 (>56); GLUCOSE, FASTING 164 MG/DL (60-100); POTASSIUM SERUM 3.1 MMOL/L (3.5-5.1); SODIUM LEVEL 141 MMOL/L (136-145)
[2024-05-21] MEDS: KCL 10MEQ/100ML SWI (KRUN) 10 MEQ in IV 1 EA IV ONE (07:05)
[2024-05-21 07:46] LABS: MAGNESIUM LEVEL 1.7 MG/DL (1.8-2.4)
[2024-05-21] MEDS ORDERED: METH-1386 PO (07:51)
[2024-05-21] MEDS ORDERED: ELIQ5TAB PO (07:51)
[2024-05-21] MEDS ORDERED: NORV5TAB PO (07:53)
[2024-05-21] MEDS ORDERED: TALK1KIT MC (07:54)
[2024-05-21 08:00] VITALS: BP 151/70; TEMP 98.4; O2SAT 97
[2024-05-21] MEDS: POTASSIUM CHLORIDE 10MEQ SR TABLET PO ONE (08:29)
[2024-05-21 08:33] VITALS: BP 151/72
[2024-05-21] MEDS: amLODIPine 5 MG TAB PO SCH (08:33)
[2024-05-21] MEDS: MAGNESIUM OXIDE 400MG TAB (MAG-OX) PO ONE (09:34)
== END 2024-05-21 10:11 | disposition home or self-care (01) | DRG 644 ==
LOC: M ED 06:41 → M ED INP 12:58 → M PCU 17:33 → M ICU 05-16 17:15
PROVIDERS: ADMIT Internal Medicine Nephrology; ATTEND General Practice
PROC: B246ZZZ Ultrasonography of Right and Left Heart (ICD-10-PCS; principal; 2024-05-18)
DX: E05.00 Thyrotoxicosis with diffuse goiter without thyrotoxic crisis or storm (principal); I42.8 Other cardiomyopathies; I82.611 Acute embolism and thrombosis of superficial veins of right upper extremity; I48.0 Paroxysmal atrial fibrillation; G47.33 Obstructive sleep apnea (adult) (pediatric); E78.5 Hyperlipidemia, unspecified; I10 Essential (primary) hypertension; E11.9 Type 2 diabetes mellitus without complications; H91.93 Unspecified hearing loss, bilateral; R00.1 Bradycardia, unspecified; E66.9 Obesity, unspecified; Z68.31 Body mass index [BMI] 31.0-31.9, adult; Z87.81 Personal history of (healed) traumatic fracture; Z79.84 Long term (current) use of oral hypoglycemic drugs; Z79.899 Other long term (current) drug therapy; Z87.891 Personal history of nicotine dependence

== ENCOUNTER → 2024-07-03 | Outpatient (CLI) | payer OTHER ==
[~2024-07-03] MED LIST changes: +ACET-683 PO; +ATOR1TAB21 PO; +ELIQ5TAB PO; +METF500T13 PO; +METH-1386 PO; +METO1TAB32 PO; +NORV5TAB PO; +TALK1KIT MC; +VITA100066 PO
[2024-07-03 16:21] LABS: BASO # 0.1 10^3/uL (0.0-0.2); BASO % 0.9 % (0.0-1.0); EOS # 0.2 10^3/uL (0.0-0.5); EOS % 3.8 % (0.0-3.0); HEMATOCRIT 45.5 % (42.0-52.0); LYMPH # 2.5 10^3/uL (1.5-5.0); LYMPH % 39.7 % (24.0-44.0); MEAN CORPUSCULAR HEMOGLOBIN 26.8 pg (27.0-33.0); MEAN CORPUSCULAR VOLUME 81.3 fl (80.0-96.0); MONO # 0.6 10^3/uL (0.0-0.8); MONO % 9.2 % (2.0-8.0); NEUTROPHILS # 2.9 10^3/uL (1.5-8.5); NEUTROPHILS % 45.9 % (36.0-66.0); PLATELET COUNT, AUTOMATED 269 10^3/uL (150-450); WHITE BLOOD COUNT 6.3 10^3/uL (4.0-10.0)
[2024-07-03 16:38] LABS: ALBUMIN 3.7 G/DL (3.2-5.2); ALKALINE PHOSPHATASE 99 U/L (40-129); ALT/SGPT 67 U/L (7.0-40); AST/SGOT 29 U/L (<34); BILIRUBIN,TOTAL 0.4 MG/DL (0.3-1.2); BLOOD UREA NITROGEN 13 MG/DL (9-23); CALCIUM LEVEL 9.3 MG/DL (8.5-10.1); CARBON DIOXIDE LEVEL 29 MMOL/L (20-31); CHLORIDE LEVEL 105 MMOL/L (98-107); CHOLESTEROL LEVEL 212 MG/DL (<200); CREATININE FOR GFR 0.91 MG/DL (0.70-1.30); GLOMERULAR FILTRATION RATE > 90.0 (>56); GLUCOSE, FASTING 144 MG/DL (60-100); HDL CHOLESTEROL 33.1 MG/DL (>40); LDL CHOLESTEROL 142.9 MG/DL (<100); MAGNESIUM LEVEL 1.9 MG/DL (1.8-2.4); POTASSIUM SERUM 4.5 MMOL/L (3.5-5.1); SODIUM LEVEL 142 MMOL/L (136-145); TOTAL PROTEIN 6.9 G/DL (5.7-8.2); TRIGLYCERIDES LEVEL 180 MG/DL (<150)
[2024-07-03 16:51] LABS: HEMOGLOBIN A1c 7.2 % (4.0-6.0)
[2024-07-06 09:28] LABS: NT PRO BNP SO < 36 pg/mL (<125)
== END ==
LOC: M PLALAB 11:19
PROVIDERS: ATTEND Internal Medicine Cardiovascular Disease
DX: R73.09 Other abnormal glucose (principal)

== ENCOUNTER → 2024-09-30 | Outpatient (CLI) | payer OTHER ==
[2024-09-30 13:47] LABS: PLATELET COUNT, AUTOMATED 244 10^3/uL (150-450)
[2024-09-30 13:53] LABS: ALT/SGPT 91 U/L (7.0-40); AST/SGOT 45 U/L (<34); CALCIUM LEVEL 9.4 MG/DL (8.5-10.1); CARBON DIOXIDE LEVEL 28 MMOL/L (20-31); CHLORIDE LEVEL 104 MMOL/L (98-107); CREATININE FOR GFR 0.81 MG/DL (0.70-1.30); GLOMERULAR FILTRATION RATE > 90.0 (>56); POTASSIUM SERUM 4.5 MMOL/L (3.5-5.1); SODIUM LEVEL 142 MMOL/L (136-145)
[2024-09-30 13:55] LABS: FREE T4 0.98 NG/DL (0.89-1.76)
[2024-09-30 14:06] LABS: ESTIMATED AVERAGE GLUCOSE 140.0 MG/DL (60-110)
== END ==
LOC: M PLALAB 11:56
PROVIDERS: ATTEND Internal Medicine Endocrinology, Diabetes & Metabolism
DX: E05.90 Thyrotoxicosis, unspecified without thyrotoxic crisis or storm (principal)

== ENCOUNTER → 2024-12-14 | Outpatient (CLI) | payer OTHER ==
[2024-12-14 14:26] LABS: PLATELET COUNT, AUTOMATED 253 10^3/uL (150-450)
[2024-12-14 14:40] LABS: ESTIMATED AVERAGE GLUCOSE 166.0 MG/DL (60-110)
[2024-12-14 14:52] LABS: ALT/SGPT 110 U/L (7.0-40); AST/SGOT 52 U/L (<34); CALCIUM LEVEL 9.0 MG/DL (8.5-10.1); CARBON DIOXIDE LEVEL 26 MMOL/L (20-31); CHLORIDE LEVEL 105 MMOL/L (98-107); CREATININE FOR GFR 0.79 MG/DL (0.70-1.30); GLOMERULAR FILTRATION RATE > 90.0 (>56); POTASSIUM SERUM 4.6 MMOL/L (3.5-5.1); SODIUM LEVEL 137 MMOL/L (136-145)
[2024-12-14 14:54] LABS: FREE T4 0.93 NG/DL (0.89-1.76)
== END ==
LOC: M PLALAB 11:30
PROVIDERS: ATTEND Internal Medicine Endocrinology, Diabetes & Metabolism
DX: E05.90 Thyrotoxicosis, unspecified without thyrotoxic crisis or storm (principal)

== ENCOUNTER 2025-01-12 12:46 | Emergency (ER) | payer OTHER ==
[2025-01-12] MEDS ORDERED: ATOM100C6 PO (13:01)
[2025-01-12] MEDS ORDERED: ROSU40TA81 PO (13:01)
[2025-01-12] MEDS ORDERED: CARV25TA PO (13:01)
[2025-01-12] MEDS ORDERED: ENTR1TAB PO (13:01)
[2025-01-12] MEDS ORDERED: JARD1TAB3 PO (13:01)
[2025-01-12 13:35] LABS: BASO # 0.1 10^3/uL (0.0-0.2); BASO % 0.8 % (0.0-1.0); EOS # 0.2 10^3/uL (0.0-0.5); EOS % 2.5 % (0.0-3.0); LYMPH # 2.2 10^3/uL (1.5-5.0); LYMPH % 28.5 % (24.0-44.0); MONO # 0.6 10^3/uL (0.0-0.8); MONO % 8.1 % (2.0-8.0); NEUTROPHILS # 4.6 10^3/uL (1.5-8.5); NEUTROPHILS % 59.7 % (36.0-66.0); PLATELET COUNT, AUTOMATED 237 10^3/uL (150-450)
[2025-01-12 13:51] LABS: CK-MB VALUE MASS 1.7 NG/ML (<3.6)
[2025-01-12 13:54] LABS: ALT/SGPT 101 U/L (7.0-40); AST/SGOT 52 U/L (<34); CALCIUM LEVEL 10.0 MG/DL (8.5-10.1); CARBON DIOXIDE LEVEL 22 MMOL/L (20-31); CHLORIDE LEVEL 107 MMOL/L (98-107); CREATININE FOR GFR 0.73 MG/DL (0.70-1.30); GLOMERULAR FILTRATION RATE > 90.0 (>56); MAGNESIUM LEVEL 2.0 MG/DL (1.8-2.4); POTASSIUM SERUM 4.0 MMOL/L (3.5-5.1); SODIUM LEVEL 141 MMOL/L (136-145)
[2025-01-12 13:56] LABS: FREE T4 0.99 NG/DL (0.89-1.76)
[2025-01-12 13:57] LABS: CPK CREATINE PHOSPHOKINASE 130 U/L (46-171); MB/CK RELATIVE INDEX 1.30 (< OR =4)
[2025-01-12 13:59] LABS: INR 1.0
[2025-01-12 18:41] VITALS: BP 147/84; TEMP 97.1; O2SAT 97
== END 2025-01-12 18:47 | disposition home or self-care (01) ==
LOC: M ED 12:46
DX: R00.2 Palpitations (principal); E05.90 Thyrotoxicosis, unspecified without thyrotoxic crisis or storm; E78.00 Pure hypercholesterolemia, unspecified; I10 Essential (primary) hypertension; F10.10 Alcohol abuse, uncomplicated; Z87.891 Personal history of nicotine dependence; Z79.4 Long term (current) use of insulin; Z79.01 Long term (current) use of anticoagulants; Z79.899 Other long term (current) drug therapy